=== PATIENT | male | born 1950 | race Caucasian/White ===

== ENCOUNTER 2018-12-07 13:28 | Outpatient (REF) | payer OTHER, SELFPAY ==
[2018-12-08 12:35] LABS: Anion Gap 13.4 mmol/L (3-11); BUN 18 mg/dL (7-18); CO2 23.6 mmol/L (21.0-32.0); CREATININE 1.18 mg/dL (0.70-1.30); Calcium 8.7 mg/dL (8.5-10.1); Chloride 103 mmol/L (98-107); Cholesterol 197 mg/dL (50-200); Glucose 98 mg/dL (70-100); HDL Cholesterol 38 mg/dL (40-60); LDL CHOLESTEROL 125 mg/dL (<100); Potassium 5.2 mmol/L (3.5-5.1); Sodium 140 mmol/L (136-145); Triglyceride 172 mg/dL (30-150)
== END 2018-12-07 13:48 ==
LOC: NCHCN 13:28
PROVIDERS: PCP Internal Medicine; Visit Provider Family Medicine
DX: Z00.00 Encounter for general adult medical examination without abnormal findings (principal); I10 Essential (primary) hypertension
CPT/HCPCS: 80048; 80061; 83721

== ENCOUNTER 2019-05-01 01:18 | Outpatient (CLI) | payer OTHER, SELFPAY ==
--- NOTE | 2019-05-01 07:30 | DI.US_ITS ---
APPROVED REPORT Conclusion Left Ventricle : The left ventricle is normal size. The left ventricular systolic function is normal. The left ventricular ejection fraction is within the normal range. There is normal LV segmental wall motion. There is normal diastolic function Right Ventricle : Right ventricle is mildly dilated. The right ventricular systolic function is awilda l. Atria : The left atrium size is normal. Right atrium is mildly dilated. Aortic Valve : Aortic valve is trileaflet. No hemodynamically significant valvular aortic stenosis. M ild aortic regurgitation. Mitral Valve : Mitral valve leaflets are thickened and myxomatous. There is minimal prolapse of the anterior leaflet Mild mitral regurgitation. No evidence of mitral valve stenosis. Tricuspid Valve : Tricuspid valve leaflets are thickened but open well. Mild tricuspid regurgitation. Pulmonic Valve : The pulmonary valve is normal in structure. Mild pulmonic regurgitation. Great Vessels : The aortic root is normal in size. IVC is normal in size and collapses >50% with insp iration. RVSP is within normal limits There is no prior echo available for comparison There is no structural abnormality which can explain syncope EXAM: Comprehensive 2D, Doppler, and color-flow Echocardiogram Rhythm: Bradycardia Indications: syncope [id number] Left Ventricle The left ventricle is normal size. The left ventricular systolic function is normal. The left ventric ular ejection fraction is within the normal range. Borderline concentric left ventricular hypertrophy . There is normal LV segmental wall motion. There is normal diastolic function LVEF is 60-65%. Right Ventricle Right ventricle is mildly dilated. The right ventricular systolic function is normal. Atria The left atrium size is normal. Right atrium is mildly dilated. Aortic Valve Aortic valve is trileaflet. No hemodynamically significant valvular aortic stenosis. Mild aortic regu rgitation. Mitral Valve Mitral valve leaflets are thickened and myxomatous. There is minimal prolapse of the anterior leaflet No evidence of mitral valve stenosis. Mild mitral regurgitation. Tricuspid Valve Tricuspid valve leaflets are thickened but open well. Mild tricuspid regurgitation. Pulmonic Valve The pulmonary valve is normal in structure. Mild pulmonic regurgitation. Great Vessels The aortic root is normal in size. IVC is normal in size and collapses >50% with inspiration. RVSP is within normal limits Pericardium There is no pericardial effusion. 2D Dimensions IVSd 1.05 cm M: 0.6-1.2 LV EDV A2C 83.70 mL PWd 1.04 cm M: 0.6 - 1.2 LV EDV A4C 98.70 mL LVDd 5.59 cm M: 4.2 - 5.9 LA Volume Index A2C 49.06 mL/m2 LVDs 3.50 cm M: 2.5 - 4.0 LA Volume Index A4C 51.11 mL/m2 Aortic Root 3.13 cm M: 3.1 - 3.7 LA Volume Index Biplane 51.16 mL/m2 RA Area A4C 23.10 cm2 LA Area A4C 25.84 cm2 LVOT 2.14 cm (M/F) 1.5-2.5 LA Area A2C 24.77 cm2 Ascending Aorta 3.49 cm M: 2.6 - 3.4 EF AP4 60.69 % LVEF (Teich) 66.80 % EF AP2 58.42 % LVEF (Chaves's) 59.64 % M: 52 - 72 EF BP 59.64 % LV Volume 75.16 mL M: 62 - 150 LV Volume Index 41.29 mL/m2 M: 34 - 74 FS 37.42 % LV Diastology E Decel Time 309.00 (160-240 msec) E/A Ratio 1.00 MED E' 0.07 (>0.07 m/s) LV E/e MED 7.39 (<14) LAT E' 0.10 (>0.1 m/s) LV E/e LAT 5.11 (<14) Pulm Vein s 0.48 m/s PV S/D Ratio 0.79 Pulm Vein d 0.61 m/s Pulm Vein a 0.31 m/s A-A Duration 176.81 msec Aortic Valve LVOT Area 3.59 cm2 LVOT Peak Grupo. 0.97 m/s LVOT Mean Grupo. 0.71 m/s HUGO Vmax 0.00 m/s LVOT Peak Gr. 3.76 mmHg HUGO Vmax Index 1.18 cm2/m2 LVOT Mean Gr. 2.24 mmHg HUGO Mean Grupo. 0.00 m/s LVOT VTI 0.25 m HUGO Mean Grupo. Index 1.22 cm2/m2 AoV Peak Grupo. 1.62 (0.5-1.3 m/s) AoV Mean Grupo. 1.15 m/s AO Peak GR. 10.52 mmHg AO Mean GR. 5.74 (<5 mmHg) AO VTI 0.40 (0.18-0.25 m) HUGO (VTI) 2.25 (2.5-4.5 cm2) HUGO (VTI) Index 1.24 cm/m2 Mitral Valve MV E Max Grupo. 0.50 (0.4-1.3 m/s) MVA VTI 8.02 (4.0-6.0 cm2) MV A Velocity 0.48 (0.4-1.3 m/s) E/A Ratio 1.05 MV Decel. Time 308.90 (160-240 msec) MV PHT 89.58 msec MVA PHT 2.46 cm2 Pulmonary Valve PV Peak Velocity 0.97 (0.5-1.5 m/s) IL End VMAX 108.78 cm/s Tricuspid Valve TR P. Velocity 2.74 m/s TV Regurg Vmax 2.74 m/s TR P. Gradient 29.98 mmHg
== END 2019-05-01 01:38 ==
PROVIDERS: PCP Internal Medicine; Visit Provider Internal Medicine Cardiovascular Disease
DX: R55 Syncope and collapse (principal); I10 Essential (primary) hypertension; I34.1 Nonrheumatic mitral (valve) prolapse; I35.8 Other nonrheumatic aortic valve disorders
CPT/HCPCS: 93306

== ENCOUNTER 2019-06-12 11:29 | Outpatient (REF) | payer OTHER, SELFPAY ==
[2019-06-14 10:14] LABS: PSA, Screening 1.6 ng/mL (0.0-4.5)
== END 2019-06-12 11:49 ==
LOC: NCHCN 11:29
PROVIDERS: PCP Internal Medicine; Visit Provider Family Medicine
DX: N40.0 Benign prostatic hyperplasia without lower urinary tract symptoms (principal); Z12.5 Encounter for screening for malignant neoplasm of prostate
CPT/HCPCS: 84153

== ENCOUNTER 2019-07-31 09:43 | Outpatient (CLI) | payer OTHER, SELFPAY ==
--- NOTE | 2019-07-31 12:56 | DI.RAD_ITS ---
EXAM: XR KNEE LT 4V AP,LAT,RAVINDRA,PAT CLINICAL HISTORY: LT KNEE PAIN, M25.562 TECHNIQUE: COMPARISON: No exams were available for comparison FINDINGS: Four views were obtained. There is narrowing of the medial tibiofemoral cartilaginous joint space. There is narrowing of the lateral patellofemoral cartilaginous joint space with lateral patellar subl uxation. There are mild sub chondral sclerotic changes of the lateral patellar facet and lateral asp ect of the trochlea. Mild marginal osteophyte formation noted associated with the patellofemoral shasha nt. 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
== END 2019-07-31 10:03 ==
PROVIDERS: PCP Internal Medicine; Visit Provider Physician Assistant
DX: M25.562 Pain in left knee (principal); M17.12 Unilateral primary osteoarthritis, left knee; S83.012A Lateral subluxation of left patella, initial encounter
CPT/HCPCS: 73564

== ENCOUNTER 2019-11-29 07:38 | Outpatient (CLI) | payer OTHER, SELFPAY ==
--- NOTE | 2019-11-29 | DI.MRI_ITS ---
EXAM: MR IAC BRAIN WO/W CLINICAL HISTORY: SUDDEN LT EAR HEARING LOSS,H91.22,H93.292,IMPAIRMENT AUDITORY. TECHNIQUE: Multiplanar multisequence MRI of the brain and internal auditory canals was performed. CONTRAST MATERIAL: IV Contrast: 15 mL of Magnevist contrast administered. COMPARISON: No exams were available for comparison FINDINGS: VENTRICLES AND EXTRA AXIAL SPACES: Normal in size and morphology for the patient's age. HEMORRHAGE: None. CEREBRAL PARENCHYMA: No focus of restricted diffusion to suggest acute infarct. No space-occupying le lynn identified. MIDLINE SHIFT: None. BRAINSTEM/CEREBELLUM: Normal. CALVARIUM: Normal. ENHANCEMENT: No suspicious enhancement identified. VISUALIZED PARANASAL SINUSES/MASTOIDS: Clear. [id number]: Normal flow void is present. Pituitary gland: Unremarkable. IAC/CP ANGLE: The internal auditory canals are within normal limits. The cerebellar pontine angles ar e unremarkable. No enhancing lesions are seen. Visualized portion of the facial nerves appear within normal limits. OTHER FINDINGS: None. IMPRESSION: Unremarkable MRI of the brain and internal auditory canals. DATA REPOSITORY:
[2019-11-29 10:00] LABS: BUN 18 mg/dL (7-18); CREATININE 0.97 mg/dL (0.70-1.30)
[2019-11-29] MEDS: Normal Saline Flush 10 ML SYR IVP (10:56)
[2019-11-29] MEDS: Gadoterate meglumine 20 ML VIAL 15 ML IVP (10:57)
== END 2019-11-29 07:58 ==
PROVIDERS: PCP Internal Medicine; Visit Provider Otolaryngology Otolaryngology/Facial Plastic Surgery
DX: H90.42 Sensorineural hearing loss, unilateral, left ear, with unrestricted hearing on the contralateral side (principal); H93.292 Other abnormal auditory perceptions, left ear
CPT/HCPCS: 70553; 84520; 82565

== ENCOUNTER 2019-12-17 16:56 | Outpatient (REF) | payer OTHER, SELFPAY ==
[2019-12-19 09:51] LABS: PSA, Screening 1.8 ng/mL (0.0-4.5)
== END 2019-12-17 17:16 ==
LOC: LBN 16:56
PROVIDERS: PCP Internal Medicine; Visit Provider Nurse Practitioner Gerontology
DX: Z12.5 Encounter for screening for malignant neoplasm of prostate (principal); Z80.42 Family history of malignant neoplasm of prostate
CPT/HCPCS: 84153

== ENCOUNTER 2020-04-07 11:26 | Outpatient (CLI) | payer OTHER, SELFPAY ==
--- NOTE | 2020-04-07 10:00 | DI.RAD_ITS ---
EXAM: XR KNEE RT 4V AP,LAT,RAVINDRA,PAT CLINICAL HISTORY: eval R knee pain, mostly anterior TECHNIQUE: 2D digital imaging was performed. COMPARISON: No exams were available for comparison FINDINGS: There is severe narrowing of the lateral patellofemoral joint. There is some lateral patellar sublux ation. There is moderate periarticular spurring. The femoral tibial joint spaces are well maintaine d show minimal periarticular spurring. No joint effusion is visible. IMPRESSION: Severe degenerative changes of the lateral patellofemoral joint.
== END 2020-04-07 11:46 ==
PROVIDERS: PCP Family Medicine; Referring Provider Family Medicine; Visit Provider Student in an Organized Health Care Education/Training Program
DX: M17.11 Unilateral primary osteoarthritis, right knee (principal)
CPT/HCPCS: 73564

== ENCOUNTER 2020-06-20 04:46 | Outpatient (CLI) | payer OTHER, SELFPAY ==
[2020-06-20 10:05] LABS: HCT 43.3 % (40.0-50.0); HGB 14.2 g/dL (13.5-17.5); MCH 30.3 pg (27.0-33.0); MCHC 32.8 % (32.0-36.0); MCV 92.3 fL (80-95); MPV 9.3 fL (8.0-11.0); Platelet Count 278 10^3/uL (130-400); RBC 4.69 10^6/uL (4.36-5.78); RDW 11.8 % (11.8-14.1); RDW-SD 39.6 fL; WBC 5.39 10^3/uL (4.4-10.8)
[2020-06-20 11:02] LABS: Anion Gap 5.4 mmol/L (3-11); BUN 22 mg/dL (7-18); CO2 30.6 mmol/L (21.0-32.0); CREATININE 1.23 mg/dL (0.70-1.30); Calcium 8.6 mg/dL (8.5-10.1); Chloride 106 mmol/L (98-107); Estimated GFR 58.52 (mL/min/1.73m2); Glucose 78 mg/dL (74-106); Potassium 4.4 mmol/L (3.5-5.1); Sodium 142 mmol/L (136-145)
[2020-06-22 17:07] LABS: COVID-19 RT-PCR Result NEGATIVE (Negative)
== END 2020-06-20 05:06 ==
PROVIDERS: PCP Family Medicine; Visit Provider Student in an Organized Health Care Education/Training Program
DX: M25.561 Pain in right knee (principal); M25.562 Pain in left knee; M17.0 Bilateral primary osteoarthritis of knee; Z11.59 Encounter for screening for other viral diseases; Z01.818 Encounter for other preprocedural examination; Z01.812 Encounter for preprocedural laboratory examination
CPT/HCPCS: 36415; 80048; 85027; U0003

== ENCOUNTER 2020-06-24 07:15 | Day surgery (SDC) | payer OTHER, SELFPAY ==
[2020-06-24] VITALS (8 sets, daily range): BP systolic 115–141; BP diastolic 73–88; PULSE 44–60; RESP 12–18; TEMP 36.1–36.6; O2SAT 97–100
[2020-06-24] MEDS: Lactated Ringers 1,000 ML 30 ML IV (08:00)
[2020-06-24] MEDS: Gabapentin 300 MG CAP PO (08:03)
[2020-06-24] MEDS: Celecoxib 200 MG CAP 400 MG PO (08:03)
[2020-06-24] MEDS: Acetaminophen 500 MG TAB 1000 MG PO ×2 (08:03→16:45)
--- NOTE | 2020-06-24 08:37 | W.PM.DSUDISC ---
Documented by User: NANCY Rizo 06/24/20 08:46 Discharge Plan Disposition Patient Disposition: HOME Condition: Good Discharge Details Reason For Visit: BILAT PATELLOFEMORAL REPLACEMENT Attending Provider: Oscar Bridges Primary Care Provider: Vero Goodrich Home Meds and New Rx's Prescriptions: New acetaminophen 500 mg capsule 1,000 mg PO Q8H PRN PRNQty: 90 RF: 0 celecoxib 200 mg capsule 200 mg PO BID Qty: 60 RF: 0 gabapentin 300 mg capsule 300 mg PO QHS Qty: 14 RF: 0 docusate sodium 100 mg capsule 100 mg PO BID PRNQty: 10 RF: 0 pantoprazole 40 mg tablet,delayed release (DR/EC) 40 mg PO DAILY Qty: 30 RF: 0 oxycodone 5 mg tablet 5 mg PO Q4H MDD 15mg PRN (Reason: pain) Qty: 12 RF: 0 Continued dorzolamide-timolol [Cosopt] 22.3-6.8 mg/mL drops 1 drp OP BID RF: 0 latanoprost 0.005 % drops 1 drp OP QPM RF: 0 lisinopril 10 mg tablet 10 mg PO HS RF: 0 simvastatin 20 mg tablet 20 mg PO HS RF: 0 Centrum Silver Men 300-600-300 mcg Tablet PO RF: 0 Discharge Instructions Additional Instructions: Patellofemoral Replacement Discharge Instructions Activity: The most important activity is to walk. You should try to take short walks a few times a day. It is important that when resting you work on keeping the knee straight. Avoid putting a pillow behind the knee as this will encourage flexion. Work on range of motion exercises as provided by Physical Therapy. - Start outpatient physical therapy within 2 weeks. - You should wear the RUY hose on both legs for 2 weeks. Dressing: The JESUSITA wraps should stay on for 2 days. You may then remove them and place the RUY hose on both legs. Keep the surgical dressing in place for at least one week. After the first week it may be removed and replace with light gauze and tape or nothing. It may get wet after 3 days but avoid soaking the dressing. Most prefer to wrap the knee with Saran or Cling Wrap to prevent it getting wet. If it gets wet, just lightly pat dry. If it is engorged, just change to some light gauze. Medications: - You should take Tylenol and anti-inflammatory Celebrex as your primary pain control medications. If the Celebrex is too expensive or not covered, please call the office for another alternative (Advil/Ibuprofen or Naproxen/Aleve) - You have been prescribed a stronger pain medication Oxycodone for breakthrough pain, take as needed as prescribed. - You have also been prescribed a stomach acid reduction agent Pantoprozole to help reduce stomach acid and reflux. - You will be taking Aspirin 81mg twice a day for DVT prevention unless instructed otherwise. - If you have constipation you should take Colace or Miralax (both [id number]). It takes most people 3-4 days to have a bowel movement. Follow-up: 2 weeks If you have any acute concerns or questions, please do not hesitate to contact the office at [phone]. You may contact Dr. Bridges with any questions after hours through the hospital at [phone] or on his cell phone at [phone]. Referrals: Oscar Bridges MD [ [facility] STAFF PHYSICIAN] - Activity:: As Tolerated with Walker Shower/Bathe:: 72 hours Diet:: As Tolerated Discharge Orders Discharge Orders: Discharge Order (Routine); Ordered 06/24/20 Ordered By: Oscar Bridges DS: Diagnosis Discharge Diagnosis (1) Patellofemoral arthritis of right knee: Status: Acute (2) Patellofemoral arthritis of left knee: Status: Acute Documented by User: Oscar Bridges MD 06/24/20 15:03 Discharge Plan Disposition Patient Disposition: HOME Condition: Good Discharge Details Reason For Visit: BILAT PATELLOFEMORAL REPLACEMENT Attending Provider: Oscar Bridges Primary Care Provider: Vero Goodrich Home Meds and New Rx's Prescriptions: New acetaminophen 500 mg capsule 1,000 mg PO Q8H PRN PRNQty: 90 RF: 0 celecoxib 200 mg capsule 200 mg PO BID Qty: 60 RF: 0 gabapentin 300 mg capsule 300 mg PO QHS Qty: 14 RF: 0 docusate sodium 100 mg capsule 100 mg PO BID PRNQty: 10 RF: 0 pantoprazole 40 mg tablet,delayed release (DR/EC) 40 mg PO DAILY Qty: 30 RF: 0 oxycodone 5 mg tablet 5 mg PO Q4H MDD 15mg PRN (Reason: pain) Qty: 12 RF: 0 Continued dorzolamide-timolol [Cosopt] 22.3-6.8 mg/mL drops 1 drp OP BID RF: 0 latanoprost 0.005 % drops 1 drp OP QPM RF: 0 lisinopril 10 mg tablet 10 mg PO HS RF: 0 simvastatin 20 mg tablet 20 mg PO HS RF: 0 Centrum Silver Men 300-600-300 mcg Tablet PO RF: 0 Discharge Instructions Additional Instructions: Patellofemoral Replacement Discharge Instructions Activity: The most important activity is to walk. You should try to take short walks a few times a day. It is important that when resting you work on keeping the knee straight. Avoid putting a pillow behind the knee as this will encourage flexion. Work on range of motion exercises as provided by Physical Therapy. - Start outpatient physical therapy within 2 weeks. - You should wear the RUY hose on both legs for 2 weeks. Dressing: The JESUSITA wraps should stay on for 2 days. You may then remove them and place the RUY hose on both legs. Keep the surgical dressing in place for at least one week. After the first week it may be removed and replace with light gauze and tape or nothing. It may get wet after 3 days but avoid soaking the dressing. Most prefer to wrap the knee with Saran or Cling Wrap to prevent it getting wet. If it gets wet, just lightly pat dry. If it is engorged, just change to some light gauze. Medications: - You should take Tylenol and anti-inflammatory Celebrex as your primary pain control medications. If the Celebrex is too expensive or not covered, please call the office for another alternative (Advil/Ibuprofen or Naproxen/Aleve) - You have been prescribed a stronger pain medication Oxycodone for breakthrough pain, take as needed as prescribed. - You have also been prescribed a stomach acid reduction agent Pantoprozole to help reduce stomach acid and reflux. - You will be taking Aspirin 81mg twice a day for DVT prevention unless instructed otherwise. - If you have constipation you should take Colace or Miralax (both [id number]). It takes most people 3-4 days to have a bowel movement. Follow-up: 2 weeks If you have any acute concerns or questions, please do not hesitate to contact the office at [phone]. You may contact Dr. Bridges with any questions after hours through the hospital at [phone] or on his cell phone at [phone]. Referrals: Oscar Bridges MD [ [facility] STAFF PHYSICIAN] - Activity:: As Tolerated with Walker Shower/Bathe:: 72 hours Diet:: As Tolerated Discharge Orders Discharge Orders: Discharge Order (Routine); Ordered 06/24/20 Ordered By: Oscar Bridges
[2020-06-24] MEDS: ceFAZolin 2 GM/50 ML BAG IVPB (09:23)
[2020-06-24] MEDS: Bupivacaine 0.25% Pres-Free 30 ML VIAL (10:16)
[2020-06-24] MEDS: Ketorolac 30 MG/ML VIAL (10:17)
--- NOTE | 2020-06-24 15:37 | IN_ITS ---
Date of service: 06/24/20 Time of Service: 14:20 PT Notes Visit Reasons: BILAT PATELLOFEMORAL REPLACEMENT Inpatient Physical Therapy Evaluation Date: 06/24/20 Referring Doctor: Elder Bridges MD PT Orders: PT CONSULT: Eval & treat Precautions: Fall risk, WBAT Patient Profile/Admitting Diagnosis: Bilateral patellofemoral replacement PMHX: Anemia BPH (benign prostatic hyperplasia) Chronic back pain Chronic diarrhea Diverticulosis Dyslipidemia Dysphagia Hypertension Left ear hearing loss Left knee DJD Mitral valve prolapse Peyronie's disease Syncope Social History/Home Situation: Home with spouse, 2 VILMA, sleeps on main level; works at [employer] as [employer] Current Functional Limitations: Decreased independence with ambulation Equipment Owned/DME: None (has [employer]), FWW provided this session Subjective: Reji is day 0 s/p bilateral patellofemoral replacement. He reports tingling in bilateral feet. During exam has a couple instances of dizzy and nausea. On return from ambulation in acuna and stair trial he does have emesis. No reports of pain with activity. Objective: General Observation: Resting upright in bed, bilateral legs wrapped in jalen bandage Mental Status: A&Ox3 Pain: 0/10, bilateral knees ROM: Right Upper Extremity: WFL Left Upper Extremity: WFL Right Lower Extremity: WFL, knee 0 to at least 110 Left Lower Extremity: WFL, knee 0 to at least 110 Strength: Right Upper Extremity: WFL Left Upper Extremity: WFL Right Lower Extremity: at least 3+/5 Left Lower Extremity: at least 3+/5 Sensation: intact, reports of tingling in bilateral feet Bed Mobility/Transfers: Independent with bed mobility Use of FWW with sit to stand and SBA Gait: CGA 50 ft x2 with use of FWW Ambulated 12 steps with step to gait, 1 rail on left ascending, and CGA x2 Balance: Static Sitting: Normal Dynamic Sitting: Good Static Standing: Fair Dynamic Standing: Poor Therapeutic Activity - dynamic movement, functional strengthening to improve physical performance: This PT instructed patient in HEP to include quad sets, LAQ, ankle pumps, heel slides, knee extension stretching Instructed him to get up every hour, ice and elevate for swelling reduction Instructed in safe use of FWW Instructed in stair ambulation with step to gait and use of rail Addressed all patient questions Informed Consent/Education: Patient instructed in purpose of PT consult and plan of care. Assessment: Patient is a 70 year old male referred to physical therapy services with the diagnosis of bilateral patellofemoral replacement. Patient presents with clinical signs and symptoms consistent with difficulty walking and generalized weakness. He is unsteady on his feet with turns. Able to safely ambulate with FWW. Able to safely perform stairs with step to gait using rail. Reji is safe to return home with spouse when medically stable for discharge and will benefit from outpatient skilled PT services to ensure proper return to normal function. Patient is assessed as a Low [id number] complexity based on the following: History: See above Examination: See above Presentation: Stable Decision Making: Low complexity Plan of Care/Treatment Plan: DISCHARGE RECOMMENDATIONS: Home with assist, outpatient PT TREATMENT CODE/TIME: 97961, [id number] 14:20-15:10
--- NOTE | 2020-06-24 20:53 | ROE_ITS ---
Date of service: 06/24/20 Time of Service: 11:21 Operative Note Operative Note DATE OF PROCEDURE: 06/24/20 PRE-OP DIAGNOSIS: Bilateral Patellofemoral Arthritis POST-OP DIAGNOSIS: same PROCEDURE: Bilateral Patlleofemoral Replacement SURGEON: Oscar Bridges HEAVY EQUIPMENT SUPERVISOR: Anam Vizcaino ANESTHESIA: regional and spinal ESTIMATED BLOOD LOSS: 100 PATHOLOGY: none sent TOURNIQUET TIME: 0 COMPLICATIONS: None Patient was transported to: PACU Patient's condition: stable Implants: RIGHT 1. Arthrosurface Wave Kahuna Trochlear Component, 7x5mm 2. Depuy Attune Patellar Button, 38mm LEFT 1. Arthrosurface Wave Kahuna Trochlear Component, 7x5mm 2. Depuy Attune Patellar Button, 38mm Indications: Reji is a 70 year old male who has had symptoms of bilateral patellofemoral arthritis. Conservative measures have been exhausted yet pain and dysfunction persisted. Please see office notes for complete details. Given the continued symptoms, I recommended a patellofemoral replacement. I reviewed the risks of the procedure to include bleeding, infection, pain, stiffness, worsening medial or lateral compartment arthritis, patellar instability, loosening, fracture, clot. Despite these risks, Reji elected to proceed. Findings: There was notable arthritic change within the patellofemoral compartment. The remainder of the knee did not show any extensive cartilage wear. Procedure Description: Reji was greeted in the preoperative holding area where both knees were identified and marked. The consent was reviewed with the patient and signed. The history and physical was updated. All questions were answered. Preoperative mediacations were administered: Acetaminophen 1000mg, Celebrex 400mg, and Gabapentin 300mg. An adductor canal block was then administered by the anesthesia team in the PACU to both knees. Reji was taken back to the operating room. A spinal anesthestic was then administered. The patient was placed into the supine po sition on the operating room table. Posts were placed for positioning during the procedure. All bony prominences were well padded. Prophylactic antibiotics in the form of Cefazolin were administered. 1g of Tranxemic Acid was given intravenously within 30 minutes of incision. Both legs were then prepped with Chloraprep and draped in a standard fashion with impervious stockinette and a bilateral extremity drape. A second prep with Chloraprep was performed prior to placing Ioband on both knees. A timeout to confirm correct identity, side and site, procedure, allergies, anesthesia, and medical concerns was performed. With the knee in some flexion, a midline incision was made overlying the knee. Full thickness skin flaps were raised once the extensor mechanism was encountered. These were raised medially and laterally. Any bleeding was controlled with electrocautery. Once the extensor mechanism was fully exposed, a medial parapatellar arthrotomy was performed in a flexed position. All bleeding from the arthrotomy and the geniculate arteries was coagulated. The menisci and intrameniscal ligament was preserved. The knee was held in extension and the patella was measured as 26 mm. Using the patellar clamp and cut guide, this was resected to a flat surface with at least 13mm of thickness remaining. The size 38 patella fit the best. This was oriented and then clamped into position. The lugs were drilled. The Arthrosurface patellofemoral trial was then placed in the appropriate position and a single guidewire was placed through the center of this device. This was confirmed to be in appropriate location using the targeting arm. The trochlea was then sized in both directions corresponding to an 7x5 kahuna wave. The initial reamer was then placed and taken down to appropriate depth. The reaming and drill guide was then placed within this recess and secured with pins. Using both the centralized reamer and the edge reamer, the trochlear recess was prepared. The guide was removed and the edges were curetted for completeness. The central hole was then prepared with a drill and a tap. The outer surface screw was then inserted to the premeasured depth. The 7x5mm patellofemoral Kahuna trochlear component by Arthrosurface was then malleted into position sitting flush over the lateral and proximal lateral aspect. High viscosity cement was prepared on the back table under vacuum preparation. When ready, cement was manually impacted into the cut surface of the patella and the patellar button was clamped into position and held. During this process attention was turned to the gutters of the knee and for all interfaces for any excess cement. While the cement was hardening, the knee was irrigated with Irrisept chlorhexadine solution. It was allowed to sit in the knee for 3 minutes. After the cement had finally cured, approximately 15min, the clamp was removed from the patella and the knee was taken through range of motion. The capsule was then reapproximated with a No. 1 Vicryl. The second dosing of 1g TXA was started. Deep tissues were then reapproximated with 0 Vicryl and 2-0 Vicryl. The skin was closed with a running 3-0 Monocryl in a subcuticular fashion. This was reinforced with skin glue. A Mepilex silver dressing was applied. Attention was then turned to the left knee. With the knee in some flexion, a midline incision was made overlying the knee. Full thickness skin flaps were raised once the extensor mechanism was encountered. These were raised medially and laterally. Any bleeding was controlled with electrocautery. Once the extensor mechanism was fully exposed, a medial parapatellar arthrotomy was performed in a flexed position. All bleeding from the arthrotomy and the geniculate arteries was coagulated. The menisci and intrameniscal ligament was preserved. The knee was held in extension and the patella was measured as 26 mm. Using the patellar clamp and cut guide, this was resected to a flat surface with at least 13mm of thickness remaining. The size 38 patella fit the best. This was oriented and then clamped into position. The lugs were drilled. The Arthrosurface patellofemoral trial was then placed in the appropriate position and a single guidewire was placed through the center of this device. This was confirmed to be in appropriate location using the targeting arm. The t rochlea was then sized in both directions corresponding to an 7x5mm. The initial reamer was then placed and taken down to appropriate depth. The reaming and drill guide was then placed within this recess and secured with pins. Using both the centralized reamer and the edge reamer, the trochlear recess was prepared. The guide was removed and the edges were curetted for completeness. The central hole was then prepared with a drill and a tap. The outer surface screw was then inserted to the premeasured depth. The 7x5mm patellofemoral Kahuna trochlear component by Arthrosurface was then malleted into position sitting flush over the lateral and proximal lateral aspect. High viscosity cement was prepared on the back table under vacuum preparation. When ready, cement was manually impacted into the cut surface of the patella and the patellar button was clamped into position and held. During this process attention was turned to the gutters of the knee and for all interfaces for any excess cement. While the cement was hardening, the knee was irrigated with Irrisept chlorhexadine solution. It was allowed to sit in the knee for 3 minutes. After the cement had finally cured, approximately 15min, the clamp was removed from the patella and the knee was taken through range of motion. The capsule was then reapproximated with a No. 1 Vicryl. The second dosing of 1g TXA was started. Deep tissues were then reapproximated with 0 Vicryl and 2-0 Vicryl. The skin was closed with a running 3-0 Monocryl in a subcuticular fashion. This was reinforced with skin glue. A Mepilex silver dressing was applied along with a uoux-wt-ahbrw JESUSITA wrap. A kxfi-su-eqwqn JESUSITA was applied to the right knee. Reji was transferred to the hospital bed without difficulty and suffering no apparent complication. Reji has a good prognosis. Physical therapy will start today and without restrictions, weight-bearing as tolerated. Aspirin 81mg BID will be used for DVT prophylaxis.
== END 2020-06-24 16:52 | disposition home or self-care (01) ==
PROVIDERS: PCP Family Medicine; Visit Provider Student in an Organized Health Care Education/Training Program
PROC: (CPT 27437; principal; 2020-06-24 09:00)
DX: M17.0 Bilateral primary osteoarthritis of knee (principal); D64.9 Anemia, unspecified; I34.0 Nonrheumatic mitral (valve) insufficiency; N40.0 Benign prostatic hyperplasia without lower urinary tract symptoms
CPT/HCPCS: 27447; 76942; 97161; 97530; J0690; J1100; J1885; J2001; J2250; J2405

== ENCOUNTER 2020-07-07 11:15 | Outpatient (CLI) | payer OTHER, SELFPAY ==
--- NOTE | 2020-07-07 11:00 | DI.RAD_ITS ---
EXAM: XR KNEE LT 2V AP,LAT CLINICAL HISTORY: s/p L PFJ. TECHNIQUE: 2D digital imaging was performed. COMPARISON: CR XR KNEE RT 3V AP,LAT,RAVINDRA from 07/07/2020 FINDINGS: There is patellofemoral compartment arthroplasty. No fracture or loosening. Mild-moderate prepatell ar swelling noted. From the standing view there is moderate narrowing of the medial compartment noted. Lateral compartm ent exhibits normal height. IMPRESSION: Satisfactory appearance of the patellofemoral compartment prosthesis. Moderate degenerative changes in the medial compartment noted. DATA REPOSITORY: RADIATION DOSE DELIVERED:
--- NOTE | 2020-07-07 11:00 | DI.RAD_ITS ---
EXAM: XR KNEE RT 3V AP,LAT,RAVINDRA CLINICAL HISTORY: s/p R PFJ. TECHNIQUE: 2D digital imaging was performed. COMPARISON: CR XR KNEE RT 4V AP,LAT,RAVINDRA,PAT from 04/07/2020 FINDINGS: There is a patellofemoral joint arthroplasty, including resurfacing of the patella. There appears to be satisfactory position of the radiopaque component of the prosthesis. No fracture or loosening ev ident. There is mild-moderate prepatellar swelling noted. Medial and lateral compartments exhibit n ormal height on the weight-bearing AP view and no marginal osteophytes off these compartments evident . IMPRESSION: DATA REPOSITORY: RADIATION DOSE DELIVERED:
== END 2020-07-07 11:35 ==
PROVIDERS: PCP Family Medicine; Visit Provider Student in an Organized Health Care Education/Training Program
DX: M17.12 Unilateral primary osteoarthritis, left knee (principal); Z96.653 Presence of artificial knee joint, bilateral
CPT/HCPCS: 73562; 73560

== ENCOUNTER 2021-07-02 08:11 | Outpatient (REF) | payer OTHER, SELFPAY ==
[2021-07-02 16:29] LABS: Source Nasal/Nares
[2021-07-02 20:18] LABS: COVID-19 PCR Negative (Negative)
== END 2021-07-02 08:12 | disposition home or self-care (01) ==
LOC: LBO 08:11
PROVIDERS: PCP Family Medicine; Visit Provider Family Medicine
DX: Z20.822 Contact with and (suspected) exposure to COVID-19 (principal)
CPT/HCPCS: 87635; U0003

== ENCOUNTER 2021-07-31 10:37 | Outpatient (CLI) | payer OTHER, SELFPAY ==
--- NOTE | 2021-07-31 10:30 | DI.RAD_ITS ---
Exam(s) XR KNEE RT 3V AP,LAT,RAVINDRA EXAM: XR KNEE RT 3V AP,LAT,RAVINDRA INDICATION: ANNUAL F/U S/P PATELLOFEMORAL REPLACEMENT. COMPARISON: CR XR KNEE RT 4V AP,LAT,RAVINDRA,PAT from 04/07/2020 CR XR KNEE RT 3V AP,LAT,RAVINDRA from 07/07/2020 CR XR KNEE LT 2V AP,LAT from 07/07/2020 TECHNIQUE: 2D digital imaging was performed. FINDINGS: There has been no change in the patellofemoral joint prosthesis. Femoral tibial joint spaces are wel l maintained. There is decreased anterior soft tissue swelling. No new findings. DATA REPOSITORY: RADIATION DOSE DELIVERED:
--- NOTE | 2021-07-31 10:30 | DI.RAD_ITS ---
Exam(s) XR KNEE LT 3V AP,LAT,RAVINDRA EXAM: XR KNEE LT 3V AP,LAT,RAVINDRA INDICATION: ANNUAL F/U S/P PATELLOFEMORAL REPLACEMENT. COMPARISON: CR XR KNEE LT 2V AP,LAT from 07/07/2020 TECHNIQUE: 2D digital imaging was performed. FINDINGS: There has been no change in the patellofemoral prosthesis based on the AP and lateral views. On the patellar view, there is mild lateral patellar tilt and subluxation.. The amount of anterior soft ti ssue swelling has decreased. There are no abnormal bony lucencies. There is moderate narrowing of t he medial femoral tibial joint space DATA REPOSITORY: RADIATION DOSE DELIVERED:
== END 2021-07-31 10:38 | disposition home or self-care (01) ==
LOC: DIORS 10:37
PROVIDERS: PCP Family Medicine; Referring Provider Family Medicine; Visit Provider Student in an Organized Health Care Education/Training Program
DX: M17.12 Unilateral primary osteoarthritis, left knee (principal); M17.11 Unilateral primary osteoarthritis, right knee; Z96.653 Presence of artificial knee joint, bilateral
CPT/HCPCS: 73562

== ENCOUNTER 2021-09-11 03:50 | Outpatient (CLI) | payer OTHER, SELFPAY ==
[2021-09-11 12:14] LABS: ALT 41 U/L (16-63); AST 30 U/L (15-37); Albumin 3.6 g/dL (3.4-5.0); Alkaline Phosphatase 82 U/L (46-116); Anion Gap 5.6 mmol/L (3-11); BUN 17 mg/dL (7-18); Bilirubin, Total 0.4 mg/dL (0.2-1.0); CO2 29.4 mmol/L (21.0-32.0); Calculated LDL 58 mg/dL (<100); Chloride 107 mmol/L (98-107); Cholesterol 116 mg/dL (<200); Glucose 88 mg/dL (74-106); HDL Cholesterol 37 mg/dL (40-60); Potassium 4.6 mmol/L (3.5-5.1); Sodium 142 mmol/L (136-145); Total Protein 6.6 g/dL (6.4-8.2); Triglyceride 107 mg/dL (<150)
== END 2021-09-11 03:51 | disposition home or self-care (01) ==
LOC: LBO 03:50
PROVIDERS: PCP Family Medicine; Visit Provider Family Medicine
DX: I10 Essential (primary) hypertension (principal); E78.5 Hyperlipidemia, unspecified; Z13.1 Encounter for screening for diabetes mellitus
CPT/HCPCS: 36415; 80053; 80061; 83036

== ENCOUNTER 2021-11-20 03:02 | Outpatient (CLI) | payer OTHER, SELFPAY ==
[2021-11-23 14:33] LABS: PSA, Ultrasensitive 2.7 ng/mL (<= 4.5)
== END 2021-11-20 03:03 | disposition home or self-care (01) ==
LOC: LBO 03:03
PROVIDERS: PCP Family Medicine; Visit Provider Urology
DX: Z80.42 Family history of malignant neoplasm of prostate (principal)
CPT/HCPCS: 36415; 84153

== ENCOUNTER 2022-01-22 09:36 | Day surgery (SDC) | payer OTHER, SELFPAY ==
[2022-01-22 10:12] VITALS: BP 138/77; PULSE 51; RESP 14; TEMP 36.6; O2SAT 100
[2022-01-22] MEDS: Tropicam./Phenyleph. (1/2.5%) 5 ML BTL OS ×3 (10:19→10:33)
--- NOTE | 2022-01-22 10:40 | W.ANESPRE ---
General Info Date of Service Date Performed: 01/22/22 Height: 5 ft 6 in Weight: 65.1 kg Body Mass Index (BMI): 23.1 Surgical Procedure: Operation Date: 01/22/22 12:40 Proposed Procedure Side Surgeon p Cataract Extraction with IOL Implant w/Glaucoma Stent Left Emerson Conde MD Meds Allergies and Home Medications Allergies Allergy/AdvReac Type Severity Reaction Status Date / Time No Known Allergies Allergy Unverified 01/22/22 10:05 Home Medication Medication Instructions Recorded dorzolamide 22.3 mg-timolol 6.8 1 drp ophthalmic (eye) BID 11/14/19 mg/mL eye drops (Cosopt) latanoprost 0.005 % eye drops 1 drp ophthalmic (eye) QPM 11/14/19 lisinopril 10 mg tablet 10 mg PO HS 11/14/19 acetaminophen 500 mg capsule 1,000 mg PO Q8H PRN PRN #90 caps 06/24/20 hquqjapj-rdh-ngwhz acid 300 1 tab PO DAILY 06/24/20 mcg-lycopene 600 mcg-lutein 300 mcg tablet (Centrum Silver Men) ibuprofen 200 mg tablet (Advil) 400 mg PO Q6H PRN 07/07/20 atorvastatin 20 mg tablet 1 tab PO HS 01/20/22 Current Visit Medications: Current Medications Generic Name Dose Route Start Last Admin Trade Name Freq PRN Reason Stop Dose Admin Acetaminophen 1,000 mg 01/22/22 06:00 Acetaminophen 500 Mg Tab PO Q4H PRN PRN Miscellaneous Medication 0 ml 01/22/22 06:00 Prednisolone 1%, Moxifloxacin 0.5%, Nepafenac 0.1% 5ml Btl OS DIRECTED RACHEL Miscellaneous Medication 0 ml 01/22/22 06:00 01/22/22 10:33 Tropicam./Phenyleph. (1/2.5%) 5 Ml Btl OS 1 drp DIRECTED RACHEL Administration Tetracaine HCl 0 ml 01/22/22 06:00 Tetracaine 0.5% 4 Ml Btl OS DIRECTED RACHEL PFSH Active Problems Active Problems: Problem Status Onset Code Peyronie's disease N48.6 Anemia D64.9 BPH (benign prostatic hyperplasia) N40.0 Chronic diarrhea K52.9 Internal derangement of left knee M23.92 Unilateral primary osteoarthritis, left knee M17.12 Family history of prostate cancer in father Z80.42 Right knee pain M25.561 Medical History Medical History (Updated 01/22/22 @ 11:04 by Emerson Conde MD) Chronic back pain pt denies this, pt. reports years ago Diverticulosis pt. denies this Dyslipidemia Dysphagia pt. 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 states it is benign and its something he has has as a child, and there is no leakage of the valve and has never had any symptoms regarding this dx. Prediabetes Syncope Surgical History Surgical History History of appendectomy History of bilateral knee replacement Partial Hx of colonoscopy Patellofemoral arthritis of left knee (06/24/20) s/p patellofemoral replacement: 06/24/2020 Patellofemoral arthritis of right knee (06/24/20) s/p patellofemoral replacement 06/24/2020 S/P TURP (transurethral resection of prostate) Tobacco Smoking/Tobacco Use Status: Never Alcohol Alcohol Intake: never Substance Use Substance use type: does not use Vital Signs and Lab Results Vital Signs Most Recent Vital Signs in EMR: Most Recent Vital Signs Temp Pulse Resp BP Pulse Ox 36.6 C 51 L 14 138/77 100 01/22/22 10:12 01/22/22 10:12 01/22/22 10:12 01/22/22 10:12 01/22/22 10:12 Lab Results Blood Type / Crossmatch: No Data to Display Complete Blood Count: No Data to Display Complete Metabolic Panel: No Data to Display Liver Function Panel: No Data to Display Coagulation Panel: No Data to Display Cardiac Panel: No Data to Display Arterial Blood Gas: No Data to Display Venous Blood Gas: No Data to Display Pancreas Panel: No Data to Display Thyroid Panel: No Data to Display Infectious Disease: No Data to Display Blood Cultures: No Data to Display Toxicology Panel: No Data to Display Anesthesia Assessment and Plan Anesthesia History Personal History: No History of Anesthesia Complications Family History: No Family History of Anesthesia Complications Exercise Tolerance Exercise Tolerance: Metabolic Equivalents>4 Cardiac & Pulmonary Exam Cardiac Exam: Normal S1/S2 Heart Sounds Pulmonary Exam: Clear Bilateral Breath Sounds Implantable Cardiac Device Does patient have a Pacemaker or an ICD?: No Airway Exam Known Difficult Airway: No Mallampati Class: 2 Mouth Opening: Normal (> 3cm) Thyromental Distance: Greater than 3 cm Neck Range of Motion: Full ROM Neck Circumference: Normal Teeth Condition: Normal Dentition (Front chipped tooth, caps) ASA Classification ASA Score: ASA 2 Emergency Case?: No NPO Status NPO Status: NPO Clears >2 hours, Solids >8 hours Anesthesia Plan Resuscitation Status: Full Code Anesthesia Technique: MAC Anesthesia Airway Planned: Natural Airway Monitors Used: Standard Monitors
[2022-01-22 10:43] VITALS: BMI 23.1
[2022-01-22] MEDS: Tetracaine 0.5% 4 ML BTL OS (11:18)
[2022-01-22] MEDS: Lidocaine 2% Jelly 6 ML SYR (11:18)
[2022-01-22] MEDS: Povidone-Iodine Ophth 30 ML BTL (11:18)
[2022-01-22] MEDS: Balanced Salt Soln.-PLUS 500 ML BAG (11:24)
[2022-01-22] MEDS: Duovisc Viscoelastic System EACH 1 EACH (11:25)
[2022-01-22 11:50] VITALS: BP 114/73; PULSE 52; RESP 16; TEMP 36.4; O2SAT 98
--- NOTE | 2022-01-22 11:57 | W.PM.DSUDISC ---
Discharge Plan Disposition Patient Disposition: HOME Condition: Good Discharge Details Attending Provider: Emerson Conde Primary Care Provider: Vero Goodrich Home Meds and New Rx's Prescriptions: No Action ibuprofen [Advil] 200 mg tablet 400 mg PO Q6H PRN dorzolamide-timolol [Cosopt] 22.3-6.8 mg/mL drops 1 drp OP BID latanoprost 0.005 % drops 1 drp OP QPM lisinopril 10 mg tablet 10 mg PO HS Centrum Silver Men 300-600-300 mcg Tablet 1 tab PO DAILY acetaminophen 500 mg capsule 1,000 mg PO Q8H PRN PRNQty: 90 0RF atorvastatin 20 mg tablet 1 tab PO HS Discharge Instructions Stand Alone Forms: Post-op Topical Cataract, Nargis Young (DSU) Discharge Orders Discharge Orders: Discharge Order (Routine); Ordered 01/22/22 Ordered By: Emerson Conde DS: Diagnosis Discharge Diagnosis (1) Primary open angle glaucoma (POAG) of left eye, mild stage: Status: Chronic (2) Nuclear sclerotic cataract of left eye: Status: Resolved (3) Cortical cataract of left eye: Status: Resolved
--- NOTE | 2022-01-22 11:58 | ROE_ITS ---
Date of service: 01/22/22 Time of Service: 11:58 Operative Note Operative Note DATE OF PROCEDURE: 01/22/22 PRE-OP DIAGNOSIS: Nuclear/cortical cataract, left eye Primary open-angle glaucoma, left eye, mild stage PROCEDURE: 1. Cataract extraction using phacoemulsification with intraocular lens implant, left eye 2. Insertion of multiple anterior segment aqueous drainage devices (Glaukos iStent inject x 2) into trabecular meshwork, left eye SURGEON: Emerson Conde ANESTHESIA TYPE: Local By Surgeon and MAC Refer to Anesthesia Record ESTIMATED BLOOD LOSS: 0 PATHOLOGY: none sent COMPLICATIONS: None Patient was transported to: same day Patient's condition: stable Implants: 1. Maurisio and Maur[employer] / [employer] Tecnis ZCB00 intraocular lens 2. Glaukos iStent inject trabecular micro-bypass stent x 2 Indications: 1. Progressive decreased vision due to cataract, left eye 2. Primary open angle glaucoma, left eye Procedure Description: CATARACT SURGERY OPERATIVE REPORT PREOPERATIVE DIAGNOSIS: Nuclear/cortical cataract, left eye Primary open-angle glaucoma, left eye, mild stage POSTOPERATIVE DIAGNOSIS: Same OPERATION: 1. Cataract extraction using phacoemulsification with posterior chamber intraocular lens implant, left eye. 2. Insertion of multiple anterior segment aqueous drainage devices (Glaukos iStent inject x 2) into trabecular meshwork, left eye IOL: IOL Shaper And Presser/Model: J[employer]J Vision / ZOHREH Tecnis ZCB00 IOL Power: + 16.5 diopters IOL Serial Number: [id number] Optic Diameter: 6.0mm Haptic/Overall Diameter: 13.0mm PHACO INFO: Martir Centurion Vision System with OZil and Active Fluidics Cumulative Dispersed Energy (CDE): 4.68 seconds TRABECULAR MICRO-BYPASS STENT INFO: Glaukos iStent inject x 2 Reference Number: [id number] Serial Number: [id number] SURGEON: Emerson Conde MD, SARBJIT ANESTHESIA: Monitored Anesthesia Care (MAC), with local sub-tenon's anesthetic infiltration COMPLICATIONS: None SPECIMENS: None INDICATIONS FOR PROCEDURE: The patient is a 71-year-old gentleman with history of mild primary open-angle glaucoma in the left eye, managed on 3 medications. He has now developed a symptomatic nuclear/cortical cataract in the left eye and desires cataract surgery and attempt to improve and maximize his vision. The option of cataract surgery was offered to the patient and he wished to proceed. In addition, the option of glaucoma stent procedure at the time of cataract surgery was also offered to the patient and he wished to proceed with that as well. PROCEDURE: The correct surgical eye was identified and marked as the left eye and the pupil was dilated in the preoperative area using mydriatics and cycloplegics. The dilated pupil size was 8.0 mm. He elected to proceed without oral sedation. The patient was brought to the operating room where cardiopulmonary monitoring was instituted and surgical time-out was performed, confirming the correct operative eye and IOL power. Topical anesthesia was administered and ophthalmic povidone-iodine 5% was instilled into the conjunctival fornices. Lidocaine gel was applied to the cornea and the thom-ocular area was prepped with Betadine 10% solution and draped in the usual sterile fashion for intraocular surgery, including an aperture drape. A Tegaderm transparent film dressing was cut in half and used to cover the lashes and lid margins. Care was taken to sequester the lashes and lid margins under the Tegaderm dressing. A lid speculum was placed between the lids of the operative eye and the Martir Lux[employer] Revalia operating microscope was maneuvered into position. Daniel scissors were then used to make a conjunctival buttonhole approximately 6mm posterior to the limbus in the inferonasal quadrant. Blunt dissection was carried out to expose bare sclera, and a blunt-tipped sub-tenon?s anesthesia cannula was introduced and passed posteriorly along the globe where non- preserved plain lidocaine was injected into posterior sub-Tenon?s space. A sideport knife was used to make a paracentesis port superior/superiortemporally. Intraocular phenylephrine/lidocaine was injected into the anterior chamber. The anterior chamber was then filled with viscoelastic. A 2.4mm keratome knife was used to create a half-thickness groove at the limbus and then to construct a three-plane near-clear corneal tunnel extending 2.0mm into clear cornea in the temporal position. . A flap was raised on the anterior capsule and capsulorhexis forceps were used to complete a continuous curvilinear capsulorhexis of 5.5 mm. Balanced salt solution was then used to perform cortical cleaving hydrodissection and nuclear hydrodelineation until the lens could be freely rotated within the capsular bag. The lens nucleus was then disassembled and removed within the capsular bag and iris plane using phacoemulsification. Residual cortical material was removed using the 45-degree angled silicone I/A tip with 0.3mm port. The posterior capsule was carefully polished to remove as much residual lens epithelial cells as safely possible. The capsular bag was then inflated and the anterior chamber deepened with viscoelastic. The lens implant described above was inserted into the capsular bag using the ZOHREH [place] Injector. A Kuglen hook was used to dial the IOL into position. The anterior chamber was then slightly over-filled with viscoelastic. The microsope and the patient's head were tilted into the ideal position for viewing of the anterior chamber angle. Viscoelastic was placed on the cornea followed by a surgical gonionlens, and the anterior chamber angle landmarks were identified. The Gatekeeper Systemos iStent inject handpiece was introduced into the anterior chamber and the insertion sleeve was retracted once the injector was distal to the pupillary margin. The trocar was advanced through the central portion of the trabecular meshwork and into the back wall of Schlemm's canal in the superiornasal quadrant, with care taken to ensure the micro-insertion tube was perpendicular to the trabecular meshwork. The trabecular meshwork was lightly dimpled and the stent was injected without difficulty. The same procedure was then performed in the inferiornasal quradrant. Both stents were then examined and noted to be in good position within the trabecular meshwork. A mild amount of bleeding occurred with implantation of each stent, but the view was easily cleared with additional viscoelastic. The microscope and the patients head were returned to the normal coaxial position. Viscoelatic was then removed from the anterior chamber using the I/A handpiece. The lens implant was noted to center nicely within the capsular bag. The incisions were stromally hydrated, and the anterior chamber was reformed using BSS. Then 0.5cc of moxifloxacin 1.0mg/ml were injected into the capsular bag and anterior chamber. The incisions were checked with a Weck spear and found to be secure. Several drops of ophthalmic povidone-iodine 5% were then applied to the eye followed by two drops of Imprimis combination prednisolone/moxifloxacin/nepafenac solution. The drapes were removed and a clear plastic protective eye shield was placed over the eye. The patient was then returned to [facility] in stable condition.
--- NOTE | 2022-01-22 12:12 | W.ANESPOSTOP ---
Postoperative Evaluation Date, Time and Location Date Performed: 01/22/22 Time Performed: 11:55 Patient Location: Day Surgery Unit Vital Signs Most Recent Imported Vital Signs: Most Recent Vital Signs Temp Pulse Resp BP Pulse Ox 36.4 C L 52 L 16 114/73 98 01/22/22 11:50 01/22/22 11:50 01/22/22 11:50 01/22/22 11:50 01/22/22 11:50 Pain Score Most Recent Pain Score: Most Recent Pain Score Pain Level 0 01/22/22 11:50 Assessment Mental Status: Awake (Alert & Oriented to Patient Baseline) Airway and Respiratory Function: Patent airway with normal (patient baseline) respiratory exam Cardiovascular Function: Hemodynamically Stable Hydration Status: Adequately Hydrated Nausea & Vomiting: No Nausea or Vomiting Pain: Pt. Denies Any Pain Peripheral Nerve Block: Patient did not receive a nerve block
== END 2022-01-22 12:24 | disposition home or self-care (01) ==
LOC: SUR 09:36
PROVIDERS: PCP Family Medicine; Visit Provider Ophthalmology
PROC: (CPT 66991; principal; 2022-01-22 12:30)
DX: H40.1121 Primary open-angle glaucoma, left eye, mild stage (principal); H25.12 Age-related nuclear cataract, left eye; R73.03 Prediabetes; E78.5 Hyperlipidemia, unspecified; I10 Essential (primary) hypertension
CPT/HCPCS: 66991; V2632; C1783

== ENCOUNTER 2022-09-24 01:39 | Outpatient (CLI) | payer OTHER, SELFPAY ==
[2022-09-24 10:08] LABS: Hemoglobin A1C 5.9 % (<5.7)
[2022-09-24 10:11] LABS: Anion Gap 7.9 mmol/L (3-11); BUN 23 mg/dL (7-18); CO2 29.1 mmol/L (21.0-32.0); CREATININE 1.1 mg/dL (0.70-1.30); Calcium 8.6 mg/dL (8.5-10.1); Calculated LDL 75 mg/dL (<100); Chloride 105 mmol/L (98-107); Cholesterol 144 mg/dL (<200); Estimated GFR 72.22 (mL/min/1.73m2); Glucose 67 mg/dL (74-106); HDL Cholesterol 55 mg/dL (40-60); Sodium 142 mmol/L (136-145); Triglyceride 72 mg/dL (<150)
[2022-09-24 20:37] LABS: PSA, Screening 2.5 ng/mL (<=6.5)
== END 2022-09-24 01:40 | disposition home or self-care (01) ==
LOC: LBO 01:40
PROVIDERS: PCP Family Medicine; Visit Provider Family Medicine
DX: Z00.00 Encounter for general adult medical examination without abnormal findings (principal); I10 Essential (primary) hypertension; E78.5 Hyperlipidemia, unspecified; R73.03 Prediabetes; I40.9 Acute myocarditis, unspecified; Z12.5 Encounter for screening for malignant neoplasm of prostate
CPT/HCPCS: 36415; 80048; 80061; 84153; 83036

== ENCOUNTER 2023-08-31 01:33 | Outpatient (CLI) | payer OTHER, SELFPAY ==
[2023-08-31 16:14] LABS: HCT 42.1 % (40.0-50.0); HGB 13.9 g/dL (13.5-17.5); MCV 91 fL (80-95); MPV 9.3 fL (8.0-11.0); Platelet Count 239 10^3/uL (130-400); RBC 4.64 10^6/uL (4.36-5.78); RDW 12.4 % (11.8-14.1); RDW-SD 40.8 fL; WBC 7.19 10^3/uL (4.4-10.8)
[2023-08-31 16:38] LABS: Anion Gap 8.7 mmol/L (3-11); BUN 22 mg/dL (7-18); CO2 26.3 mmol/L (21.0-32.0); CREATININE 1.1 mg/dL (0.70-1.30); Calcium 8.5 mg/dL (8.5-10.1); Chloride 106 mmol/L (98-107); Estimated GFR 71.77 (mL/min/1.73m2); Glucose 116 mg/dL (74-106); Potassium 3.9 mmol/L (3.5-5.1); Sodium 141 mmol/L (136-145)
[2023-08-31 16:44] LABS: Hemoglobin A1C 5.7 % (<5.7)
[2023-08-31 17:02] LABS: Calculated LDL 48 mg/dL (<100); Cholesterol 127 mg/dL (<200); HDL Cholesterol 46 mg/dL (40-60); Triglyceride 169 mg/dL (<150)
== END 2023-08-31 01:34 | disposition home or self-care (01) ==
LOC: LBO 01:33
PROVIDERS: PCP Family Medicine; Visit Provider Family Medicine
DX: I10 Essential (primary) hypertension (principal)
CPT/HCPCS: 36415; 80048; 80061; 85027; 83036; 84154

== ENCOUNTER 2024-09-14 14:33 | Outpatient (REF) | payer OTHER, SELFPAY ==
[2024-09-17 09:48] LABS: PSA, Screening 3.6 ng/mL (<=6.5)
== END 2024-09-14 14:34 | disposition home or self-care (01) ==
LOC: NCHCN 14:33
PROVIDERS: PCP Family Medicine; Visit Provider Family Medicine
DX: Z12.5 Encounter for screening for malignant neoplasm of prostate (principal)
CPT/HCPCS: 84153